=== PATIENT | female | born 1995 | race Two or more races ===

== ENCOUNTER 2022-10-11 12:46 | Emergency (ER) | payer OTHER ==
[~2022-10-11] VITALS: Ht 170.2 cm; Wt 53.5 kg
[2022-10-11] MEDS ORDERED: PRENATA CHEWAB1 EACH PO (13:02)
== END 2022-10-11 20:42 | disposition home or self-care (01) ==
LOC: ER 12:46
DX: O26.891 Other specified pregnancy related conditions, first trimester (principal); O23.41 Unspecified infection of urinary tract in pregnancy, first trimester; E86.0 Dehydration; R51.9 Headache, unspecified; N39.0 Urinary tract infection, site not specified; Z3A.13 13 weeks gestation of pregnancy; Z20.822 Contact with and (suspected) exposure to COVID-19

== ENCOUNTER 2023-04-03 09:30 | Inpatient (IN) | payer OTHER ==
[~2023-04-03] VITALS: Ht 170.2 cm; Wt 64.9 kg
[~2023-04-03 09:30] MED LIST: PRENATA CHEWAB1 EACH PO
[2023-04-03 11:45] LABS: URINE APPEARANCE Clear; URINE BILIRRUBIN Small (NEGATIVE); URINE BLOOD Negative; URINE COLOR Dark Yellow; URINE LEUKOCYTE Negative; URINE NITRATE Negative; URINE PROTEIN 30 (NEGATIVE)
[2023-04-03 11:49] LABS: HEMATOCRIT 30.2 % (36.0-45.00); HEMOGLOBIN 9.5 g/dL (12.0-15.00); MEAN CELL VOLUME 71.4 fL (80.00-100.00); MEAN CORPUSCULAR HEMOGLOBIN 22.4 pg (27.00-32.0); MEAN CORPUSCULAR HGB CONC 31.4 g/dl (32.0-36.0); PLATELET COUNT 244 K/uL (150-450); RED BLOOD COUNT 4.22 M/uL (4.00-6.00)
[2023-04-03 11:50] LABS: URINE BACTERIA 85.6 uL (0.0-1933); URINE EPITHELIAL CELLS 35.7 uL (0.0-38.8)
[2023-04-03 11:52] LABS: RED CELL DISTRIBUTION WIDTH 30.5 % (11.5-14.5)
[2023-04-03 11:58] LABS: URINE GLUCOSE 100 MG/DL (NEGATIVE)
[2023-04-03 12:09] LABS: INR < 0.93; PARTIAL THROMBOPLASTIN TIME 28.2 SECONDS (22.0-34.0); PROTHROMBIN TIME 9.8 SECONDS (9.0-11.5)
[2023-04-03 12:19] LABS: BILIRUBIN TOTAL 0.56 mg/dL (0.3-1.2); CALCIUM 9.1 mg/dL (8.5-10.1); CREATININE SERUM 0.59 mg/dL (0.55-1.02); GFR 121.37; GLOBULINA 4.2 G/DL (2.4-3.5); POTASSIUM 3.83 mEq/L (3.5-5.1); TOTAL PROTEIN 7.2 gm/dL (6.4-8.2)
[2023-04-11 01:47] LABS: HEMATOCRIT 30.1 % (36.0-45.00); HEMOGLOBIN 9.5 g/dL (12.0-15.00); MEAN CELL VOLUME 71.3 fL (80.00-100.00); MEAN CORPUSCULAR HEMOGLOBIN 22.6 pg (27.00-32.0); MEAN CORPUSCULAR HGB CONC 31.7 g/dl (32.0-36.0); PLATELET COUNT 170 K/uL (150-450); RED BLOOD COUNT 4.22 M/uL (4.00-6.00); RED CELL DISTRIBUTION WIDTH 29.8 % (11.5-14.5)
[2023-04-12] MEDS ORDERED: IBUPROFEN800 MG PO (11:46)
== END 2023-04-12 14:57 | disposition home or self-care (01) | DRG 788 ==
LOC: OB/GYN 04-10 07:00 → O/R 04-10 08:45 → OB/GYN 04-10 09:30
PROVIDERS: ADMIT Specialist; ATTEND Specialist
PROC: 4A1HXCZ Monitoring of Products of Conception, Cardiac Rate, External Approach (ICD-10-PCS; 2023-04-10)
PROC: 10D00Z1 Extraction of Products of Conception, Low, Open Approach (ICD-10-PCS; principal; 2023-04-10 07:00)
DX: O34.211 Maternal care for low transverse scar from previous cesarean delivery (principal); Z3A.39 39 weeks gestation of pregnancy; Z37.0 Single live birth; Z20.822 Contact with and (suspected) exposure to COVID-19